=== PATIENT | female | born 1955 | race Caucasian/White ===

== ENCOUNTER 2020-02-01 11:22 | Emergency (ER) | payer MEDICARE, MEDICAID ==
[~2020-02-01] VITALS: Ht 162.6 cm; Wt 95.9 kg
[2020-02-01 11:31] VITALS: BP 117/72
--- NOTE | 2020-02-01 12:17 | NUR ---
Lani, PICC RN at bedside
--- NOTE | 2020-02-01 13:03 | NUR ---
Pt arrived for midline placement. Per MD order 5f dual lumen midline placed to left cephalic vein x's 1 attempt with success using ultrasound. Aftercare reviewed with pt and she denies any unanswered questions, problems or complaints. Yohana CALZADA RN Addendum: 02/01/20 at 1309 by Mary Beth Randall RN MIDLINE ASPIRATES BLOOD AND FLUSHES EASILY. OK TO USE FOR BLOOD DRAWS, INFUSIONS AND CT SCANS
[2020-02-01] MEDS ORDERED: ipratropium/albuterol 3ml nebule NEB ONE (14:10)
== END 2020-02-01 14:29 | disposition home or self-care (01) ==
LOC: ER 11:22
DX: Z45.2 Encounter for adjustment and management of vascular access device (principal); R06.02 Shortness of breath; R50.9 Fever, unspecified; I10 Essential (primary) hypertension; K21.9 Gastro-esophageal reflux disease without esophagitis; E11.9 Type 2 diabetes mellitus without complications; G89.29 Other chronic pain; Z86.19 Personal history of other infectious and parasitic diseases; Z87.891 Personal history of nicotine dependence; Z88.0 Allergy status to penicillin; Z88.2 Allergy status to sulfonamides; Z88.1 Allergy status to other antibiotic agents
CPT/HCPCS: 36569; 76937; 94640; 94760; 99152; 99153; 99285

== ENCOUNTER 2020-03-05 15:29 | Inpatient (IN) | payer MEDICARE, MEDICAID ==
[~2020-03-05] VITALS: Ht 167.6 cm; Wt 100.0 kg
[2020-03-05] MEDS ORDERED: normal saline 1000ML IV soln IVB ONE (16:15)
--- NOTE | 2020-03-05 16:35 | NUR ---
Pt is verbalizing concern about how she will get back home to [place] upon discharge to home.
--- NOTE | 2020-03-05 16:40 | NUR ---
Pt's tele-neurology exam completed with Dr. Bucio and this nurse at the bedside.
[2020-03-05 16:43] LABS: BASOPHILS # (AUTO) 0.1 X10'3 (0-0.2); BASOPHILS % (AUTO) 1.2 % (0-1); EOSINOPHILS % (AUTO) 0.7 % (0-6); HEMATOCRIT 39.9 % (35.0-45.0); HEMOGLOBIN 12.9 g/dl (12.0-16.0); LYMPHOCYTES # (AUTO) 1.4 X10'3 (1.1-4.8); LYMPHOCYTES % (AUTO) 28.9 % (21-51); MEAN CORPUSCULAR HEMOGLOBIN 26.8 PG (27.0-31.0); MEAN CORPUSCULAR HGB CONC 32.4 g/dL (33.0-36.5); MEAN CORPUSCULAR VOLUME 82.7 FL (78-98); MEAN PLATELET VOLUME 7.7 FL (7.4-10.4); MONOCYTES # (AUTO) 0.3 X10'3 (0-0.9); MONOCYTES % (AUTO) 6.1 % (2-12); NEUTROPHILS % (AUTO) 63.1 % (42-75); PLATELET COUNT 187 X10'3 (140-440); RED BLOOD COUNT 4.82 X10'6 (4.20-5.60); RED CELL DISTRIBUTION WIDTH 16.5 % (11.5-14.5); WHITE BLOOD COUNT 4.7 X10'3 (4.5-11.0)
--- NOTE | 2020-03-05 16:57 | NUR ---
Pt's lab work was hemolyzed per lab report. ramiro Fernandez is in the room attempting to recollect the blood work.
[2020-03-05] MEDS ORDERED: HYDR12.55 PO (17:05)
[2020-03-05] MEDS ORDERED: BUPR1FIL25 SL (17:18)
[2020-03-05] MEDS ORDERED: NOVLG SQ (17:26)
[2020-03-05] MEDS ORDERED: METF-438 PO (17:26)
[2020-03-05] MEDS ORDERED: METO25TA6 PO (17:26)
[2020-03-05] MEDS ORDERED: LISI-604 PO (17:26)
[2020-03-05] MEDS ORDERED: OMEP-50 PO (17:26)
[2020-03-05] MEDS ORDERED: morphine 4 MG/ML inj SYRINge IV ONE ×2 (18:20→19:45)
--- NOTE | 2020-03-05 18:24 | NUR ---
Lab phoned and reports the recollect on the lab work is hemolyzed, provider aware. Will attempt to recollect upon return from MRI.
--- NOTE | 2020-03-05 18:31 | NUR ---
To MRI via w/c with assistance of block saw operator. Pt given pain medication prior to MRI.
[2020-03-05 20:41] LABS: ALANINE AMINOTRANSFERASE 15 U/L (12-78); ALBUMIN 3.7 G/DL (3.4-5.0); ALBUMIN/GLOBULIN RATIO 1.4 (1.1-1.5); ALKALINE PHOSPHATASE 73 IU/L (46-116); ANION GAP 11 (8-16); ASPARTATE AMINO TRANSFERASE 20 U/L (10-37); BILIRUBIN,TOTAL 0.4 MG/DL (0.1-1.0); BLOOD UREA NITROGEN 12 MG/DL (7-18); CALCIUM 8.9 MG/DL (8.5-10.1); CHLORIDE 106 MMOL/L (99-107); GLUCOSE 86 MG/DL (70-104); POTASSIUM 3.8 MMOL/L (3.5-5.1); SODIUM 144 MMOL/L (135-145); TOTAL CARBON DIOXIDE 26.8 MMOL/L (24-32); TOTAL PROTEIN 6.4 G/DL (6.4-8.2); eGFR 56 ML/MIN
[2020-03-05] MEDS ORDERED: magnesium hydroxide 30ml (MOM) UD suspension PO PRN (21:10)
[2020-03-05] MEDS ORDERED: magnesium 2GM in 50ml NS 50 ML IV PRN (21:10)
[2020-03-05] MEDS ORDERED: potassium Cl 20 mEq SR tablet PO PRN ×2 (21:10)
[2020-03-05] MEDS ORDERED: magnesium Cl slow-release 64mg tablet PO PRN (21:10)
[2020-03-05] MEDS ORDERED: ondansetron/PF 4mg/2ml inj IV PRN (21:10)
[2020-03-05] MEDS ORDERED: bisacodyl 10mg suppository rectal RC PRN (21:10)
[2020-03-05] MEDS ORDERED: mag hydrox/Alum hydrox/simeth 30ml oral suspension PO PRN (21:10)
[2020-03-05] MEDS ORDERED: magnesium 4gm in 100ml NS 100 ML IV PRN (21:10)
[2020-03-05] MEDS ORDERED: acetaminophen 325mg tablet PO PRN (21:10)
[2020-03-05] MEDS ORDERED: potassium CL 10mEq/100ml bag 100 ML IV PRN ×2 (21:10)
[2020-03-05] MEDS ORDERED: glucagon, human recombinant 1mg kit SUBCUT PRN (21:15)
[2020-03-05] MEDS ORDERED: dextrose 50%-water 50ml dispensing syringe IV PRN ×2 (21:15)
[2020-03-05] MEDS ORDERED: MESSAGE TO PHARMACY PO ONE (21:15)
[2020-03-05] MEDS ORDERED: dextrose ORAL solution 15 GM/59 ML bottle PO PRN ×2 (21:15)
[2020-03-05] MEDS ORDERED: insulin Lispro (HumaLOG) vial - multi-dose SQ SCH (21:15)
--- NOTE | 2020-03-05 21:45 | NUR ---
Received report from SALES RECEPTIONISTMARGE Pagan. Patient to follow shortly.
[2020-03-05 21:47] LABS: HEMOGLOBIN A1C 4.5 % (4.5-6.2)
--- NOTE | 2020-03-05 22:00 | NUR ---
Patient arrived to floor via gurney at around 2145. Patient A&Ox4, transferred over to bed and 2 RN skin completed. VS intiiated.
[2020-03-05 22:11] LABS: CLARITY,URINE CLEAR (Clear); COLOR,URINE YELLOW (Yellow); GLUCOSE, URINE NEGATIVE (Neg); KETONES,URINE NEGATIVE (Neg); LEUKOCYTE ESTERASE ,URINE NEGATIVE (Neg); NITRITES, URINE NEGATIVE (Neg); OCCULT BLOOD,URINE NEGATIVE (Neg); PROTEIN,URINE NEGATIVE (Neg); UROBILINOGEN,URINE 0.2 E.U/dL (0.2-1.0)
[2020-03-05 22:13] LABS: UA COLLECTION TYPE CLN CATCH MIDSTREAM
[2020-03-05 22:15] VITALS: BP 125/73
[2020-03-05] MEDS: HYDROcodone/acetaminophen 5mg/325mg tablet PO PRN (22:32)
[2020-03-06 06:10] LABS: EOSINOPHILS # (AUTO) 0.1 X10'3 (0-0.9); EOSINOPHILS % (AUTO) 2.4 % (0-6); HEMATOCRIT 36.1 % (35.0-45.0); HEMOGLOBIN 11.7 g/dl (12.0-16.0); LYMPHOCYTES # (AUTO) 1.1 X10'3 (1.1-4.8); LYMPHOCYTES % (AUTO) 34.2 % (21-51); MEAN CORPUSCULAR HEMOGLOBIN 26.9 PG (27.0-31.0); MEAN CORPUSCULAR HGB CONC 32.4 g/dL (33.0-36.5); MEAN PLATELET VOLUME 7.5 FL (7.4-10.4); MONOCYTES # (AUTO) 0.3 X10'3 (0-0.9); MONOCYTES % (AUTO) 8.1 % (2-12); NEUTROPHILS # (AUTO) 1.7 X10'3 (1.8-7.7); NEUTROPHILS % (AUTO) 54.3 % (42-75); PLATELET COUNT 161 X10'3 (140-440); RED BLOOD COUNT 4.35 X10'6 (4.20-5.60); RED CELL DISTRIBUTION WIDTH 16.1 % (11.5-14.5); WHITE BLOOD COUNT 3.2 X10'3 (4.5-11.0)
--- NOTE | 2020-03-06 06:15 | NUR ---
Patient in room ORTHO 4012. I have received report from Ramandeep Troy and had the opportunity to ask questions and assume patient care.
[2020-03-06 06:28] LABS: ALANINE AMINOTRANSFERASE 23 U/L (12-78); ALBUMIN 3.4 G/DL (3.4-5.0); ALBUMIN/GLOBULIN RATIO 1.3 (1.1-1.5); ALKALINE PHOSPHATASE 65 IU/L (46-116); ANION GAP 9 (8-16); ASPARTATE AMINO TRANSFERASE 20 U/L (10-37); BILIRUBIN,TOTAL 0.3 MG/DL (0.1-1.0); BLOOD UREA NITROGEN 12 MG/DL (7-18); BUN/CREATININE RATIO 12.1 (6.6-38.0); CALCIUM 8.3 MG/DL (8.5-10.1); CHLORIDE 108 MMOL/L (99-107); CREATININE 0.99 MG/DL (0.40-0.90); GLUCOSE 74 MG/DL (70-104); MAGNESIUM 1.8 MG/DL (1.5-2.4); PHOSPHORUS 4.1 MG/DL (2.3-4.5); POTASSIUM 3.5 MMOL/L (3.5-5.1); SODIUM 144 MMOL/L (135-145); TOTAL CARBON DIOXIDE 27.3 MMOL/L (24-32); TOTAL PROTEIN 6.1 G/DL (6.4-8.2); eGFR 57 ML/MIN
--- NOTE | 2020-03-06 06:30 | NUR ---
Problems reprioritized. Patient report given, questions answered & plan of care reviewed with Ileana BIRD.
[2020-03-06] MEDS: HYDROcodone/acetaminophen 5mg/325mg tablet PO PRN ×3 (06:37→20:06)
[2020-03-06 06:42] VITALS: BP 112/70
[2020-03-06] MEDS: K and/or MAG REPLACEMENT MC SCH ×2 (07:21→20:00)
[2020-03-06 08:19] VITALS: BP 120/76
[2020-03-06] MEDS: metoprolol tartrate 25mg tablet PO SCH ×2 (08:19→20:00)
[2020-03-06] MEDS: docusate sod 100mg capsule PO SCH ×2 (08:19→20:00)
[2020-03-06] MEDS: HYDROchlorothiazide 12.5mg capsule PO SCH (08:20)
[2020-03-06] MEDS: lisinopril 5mg tablet PO SCH (08:20)
[2020-03-06] MEDS: pantoprazole 40mg Tablet.DR PO SCH ×2 (08:20→20:02)
[2020-03-06] MEDS: enoxaparin 40mg/0.4ml syringe SQ SCH (08:21)
[2020-03-06] MEDS: hydrOXYzine 25 MG tablet PO PRN (08:28)
[2020-03-06 10:00] VITALS: BP 107/63
--- NOTE | 2020-03-06 12:19 | NUR ---
PAGER ID: [phone] MESSAGE: Boogie Ms. Hilton in [id number] has concerns regarding her Zoloft. Med was not addressed in the med rec. Thank you Ileana # [id number]
[2020-03-06] MEDS: sertraline 50mg tablet PO SCH (12:34)
--- NOTE | 2020-03-06 13:11 | NUR ---
DM Consult: Pt A1C less than 7 and not appropriate for DM ed at this time. Addendum: 03/06/20 at [address] Amended: Links added.
[2020-03-06 18:00] VITALS: BP 102/62
--- NOTE | 2020-03-06 18:28 | NUR ---
Problems reprioritized. Patient report given, questions answered & plan of care reviewed with Jeniffer.
--- NOTE | 2020-03-06 18:30 | NUR ---
[facility] in room ORTHO 4009. I have received report from Ileana-MARGE, and had the opportunity to ask questions and assume patient care.
--- NOTE | 2020-03-06 18:35 | NUR ---
Patient in room ORTHO 4012. I have received report from Ileana-MARGE, and had the opportunity to ask questions and assume patient care.
[2020-03-06] MEDS: gabapentin 300mg capsule PO SCH (20:02)
[2020-03-06] MEDS: methylPREDNISolone sod succ/PF 40mg inj. IV SCH (20:03)
[2020-03-06] MEDS ORDERED: insulin glargine (Lantus) pen - multi-dose SQ SCH (21:00)
[2020-03-06 22:00] VITALS: BP 128/83
--- NOTE | 2020-03-06 22:28 | NUR ---
Patient's metoprolol on hold due to low systolic blood pressure
[2020-03-07 05:00] VITALS: BP 145/89
[2020-03-07 06:00] VITALS: BP 145/89
[2020-03-07 06:13] LABS: BASOPHILS % (AUTO) 0.3 % (0-1); EOSINOPHILS % (AUTO) 0.1 % (0-6); HEMOGLOBIN 12.7 g/dl (12.0-16.0); LYMPHOCYTES # (AUTO) 0.8 X10'3 (1.1-4.8); LYMPHOCYTES % (AUTO) 24.8 % (21-51); MEAN CORPUSCULAR HEMOGLOBIN 26.9 PG (27.0-31.0); MEAN CORPUSCULAR HGB CONC 32.6 g/dL (33.0-36.5); MEAN CORPUSCULAR VOLUME 82.4 FL (78-98); MEAN PLATELET VOLUME 7.4 FL (7.4-10.4); MONOCYTES % (AUTO) 1.5 % (2-12); NEUTROPHILS # (AUTO) 2.3 X10'3 (1.8-7.7); NEUTROPHILS % (AUTO) 73.3 % (42-75); PLATELET COUNT 169 X10'3 (140-440); RED BLOOD COUNT 4.73 X10'6 (4.20-5.60); RED CELL DISTRIBUTION WIDTH 16.1 % (11.5-14.5); WHITE BLOOD COUNT 3.1 X10'3 (4.5-11.0)
[2020-03-07 06:16] LABS: ALANINE AMINOTRANSFERASE 14 U/L (12-78); ALBUMIN 3.5 G/DL (3.4-5.0); ALBUMIN/GLOBULIN RATIO 1.2 (1.1-1.5); ALKALINE PHOSPHATASE 72 IU/L (46-116); ANION GAP 10 (8-16); ASPARTATE AMINO TRANSFERASE 20 U/L (10-37); BILIRUBIN,TOTAL 0.3 MG/DL (0.1-1.0); BLOOD UREA NITROGEN 15 MG/DL (7-18); BUN/CREATININE RATIO 14.7 (6.6-38.0); CALCIUM 8.9 MG/DL (8.5-10.1); CHLORIDE 103 MMOL/L (99-107); CREATININE 1.02 MG/DL (0.40-0.90); GLUCOSE 137 MG/DL (70-104); MAGNESIUM 1.6 MG/DL (1.5-2.4); PHOSPHORUS 3.5 MG/DL (2.3-4.5); SODIUM 140 MMOL/L (135-145); TOTAL CARBON DIOXIDE 27.2 MMOL/L (24-32); TOTAL PROTEIN 6.5 G/DL (6.4-8.2); eGFR 55 ML/MIN
--- NOTE | 2020-03-07 06:23 | NUR ---
Problems reprioritized. Patient report given to Aria, questions answered & plan of care reviewed with .
[2020-03-07] MEDS: hydrOXYzine 25 MG tablet PO PRN (06:35)
[2020-03-07] MEDS: HYDROcodone/acetaminophen 5mg/325mg tablet PO PRN ×2 (06:35→10:35)
--- NOTE | 2020-03-07 06:43 | NUR ---
Patient in room ORTHO 4012. I have received report from Jeniffer and had the opportunity to ask questions and assume patient care.
[2020-03-07] MEDS: K and/or MAG REPLACEMENT MC SCH (07:15)
[2020-03-07] MEDS: lisinopril 5mg tablet PO SCH (07:48)
[2020-03-07] MEDS: gabapentin 300mg capsule PO SCH (07:48)
[2020-03-07] MEDS: docusate sod 100mg capsule PO SCH (07:48)
[2020-03-07] MEDS: pantoprazole 40mg Tablet.DR PO SCH (07:48)
[2020-03-07] MEDS: sertraline 50mg tablet PO SCH (07:48)
[2020-03-07] MEDS: methylPREDNISolone sod succ/PF 40mg inj. IV SCH (07:49)
[2020-03-07] MEDS: metoprolol tartrate 25mg tablet PO SCH (07:49)
[2020-03-07] MEDS: HYDROchlorothiazide 12.5mg capsule PO SCH (07:49)
[2020-03-07] MEDS: enoxaparin 40mg/0.4ml syringe SQ SCH (07:50)
[2020-03-07 10:00] VITALS: BP 123/73
--- NOTE | 2020-03-07 11:30 | NUR ---
called and gave report to juana BIRD at [facility].
== END 2020-03-07 13:00 | DRG 552 ==
LOC: ER 15:30 → ED HOLD 21:06 → ORTHO 4S 21:45
PROVIDERS: ADMIT Family Medicine; ATTEND Internal Medicine
DX: M51.16 Intervertebral disc disorders with radiculopathy, lumbar region (principal); E11.65 Type 2 diabetes mellitus with hyperglycemia; F17.210 Nicotine dependence, cigarettes, uncomplicated; G89.29 Other chronic pain; I10 Essential (primary) hypertension; K21.9 Gastro-esophageal reflux disease without esophagitis; M51.37 Other intervertebral disc degeneration, lumbosacral region; M48.061 Spinal stenosis, lumbar region without neurogenic claudication; E66.01 Morbid (severe) obesity due to excess calories; E78.5 Hyperlipidemia, unspecified; R27.0 Ataxia, unspecified; R60.9 Edema, unspecified; W18.39XA Other fall on same level, initial encounter; Y93.89 Activity, other specified; Z68.35 Body mass index [BMI] 35.0-35.9, adult; Y92.89 Other specified places as the place of occurrence of the external cause; Y99.8 Other external cause status; Z82.49 Family history of ischemic heart disease and other diseases of the circulatory system; Z85.71 Personal history of Hodgkin lymphoma; Z85.72 Personal history of non-Hodgkin lymphomas; Z86.718 Personal history of other venous thrombosis and embolism
CPT/HCPCS: 36415; 72148; 80053; 81003; 82948; 83036; 83735; 84100; 85025; 85651; 87081; 93971; 97110; 97116; 97161; 97530; 99285; G0378; J1650; J1815; J2270; J2920; J7030; Z7610

== ENCOUNTER 2024-02-10 20:25 | Inpatient (IN) | payer MEDICARE, MEDICAID ==
[~2024-02-10] VITALS: Ht 167.6 cm; Wt 104.2 kg
[~2024-02-10 20:25] MED LIST: BUPR1FIL56 SL; HYDR12.55 PO; LISI5TAB22 PO; LOP25T PO; METF-438 PO; NOVLG SQ; OMEP20CA16 PO
[2024-02-10] MEDS ORDERED: magnesium hydroxide 30ml (MOM) UD suspension PO PRN (23:35)
[2024-02-10] MEDS ORDERED: potassium Cl 20 mEq SR tablet PO PRN (23:35)
[2024-02-10] MEDS ORDERED: magnesium Cl slow-release 64mg tablet PO PRN (23:35)
[2024-02-10] MEDS ORDERED: mag hydrox/Alum hydrox/simeth 30ml oral suspension PO PRN (23:35)
[2024-02-10] MEDS ORDERED: potassium Cl 40MEQ/1/2NS 520ml 520 ML IV PRN (23:35)
[2024-02-10] MEDS ORDERED: magnesium 4gm in 100ml NS 100 ML IV PRN (23:35)
[2024-02-10] MEDS: furosemide 40mg/4ml inj IV SCH (23:50)
[2024-02-10] MEDS ORDERED: glucagon, human recombinant 1mg kit SUBCUT PRN (23:55)
[2024-02-10] MEDS ORDERED: DEXTROSE 15 GM of carb/4 tabs (each vial/BOTTLE has 4 tablets) PO PRN ×2 (23:55)
[2024-02-10] MEDS ORDERED: insulin Lispro (HumaLOG) vial - multi-dose SQ SCH (23:55)
[2024-02-10] MEDS ORDERED: dextrose 50%-water 50ml dispensing syringe IV PRN ×2 (23:55)
[2024-02-11] VITALS (29 sets, daily range): BP systolic 111–140; BP diastolic 61–83; PULSE 82–107; RESP 13–26; TEMP 97.2–98.6; O2SAT 90–100
[2024-02-11] MEDS ORDERED: aminophylline 250mg/10ml inj. IV PRN
[2024-02-11] MEDS ORDERED: metoprolol tartrate 1mg/ml inj IV PRN
[2024-02-11] MEDS ORDERED: nitroGLYCERIN 0.4mg SUBLingual tab SL PRN
[2024-02-11] MEDS: MESSAGE TO PHARMACY PO ONE (00:42)
[2024-02-11] MEDS: nitroGLYCERIN 0.2mg/hour patch TD ONE (00:43)
[2024-02-11] MEDS: aspirin 81mg tab.chew PO ONE (00:52)
[2024-02-11] MEDS: metoprolol tartrate 50mg tablet PO ONE (00:54)
[2024-02-11] MEDS: heparin, porcine 5000 units/ml vial SQ SCH (00:54)
[2024-02-11] MEDS: atorvastatin 20mg tablet PO SCH (00:56)
[2024-02-11] MEDS: ondansetron/PF 4mg/2ml inj IV PRN (02:02)
[2024-02-11] MEDS: traMADol 50MG tablet PO ONE (02:02)
[2024-02-11] MEDS: ipratropium/albuterol 3ml nebule NEB SCH (03:26)
[2024-02-11] MEDS ORDERED: HYDR-3686 PO (05:15)
[2024-02-11 07:26] LABS: BASOPHILS % (AUTO) 0.5 % (0-1); EOSINOPHILS # (AUTO) 0.1 X10'3 (0-0.9); EOSINOPHILS % (AUTO) 0.7 % (0-6); HEMATOCRIT 35.1 % (35.0-45.0); HEMOGLOBIN 11.4 g/dl (12.0-16.0); LYMPHOCYTES % (AUTO) 14.2 % (21-51); MEAN CORPUSCULAR HEMOGLOBIN 27.3 PG (27.0-31.0); MEAN CORPUSCULAR HGB CONC 32.4 g/dL (33.0-36.5); MEAN CORPUSCULAR VOLUME 84.2 FL (78-98); MEAN PLATELET VOLUME 7.2 FL (7.4-10.4); MONOCYTES # (AUTO) 0.4 X10'3 (0-0.9); MONOCYTES % (AUTO) 5.4 % (2-12); NEUTROPHILS # (AUTO) 5.5 X10'3 (1.8-7.7); NEUTROPHILS % (AUTO) 79.2 % (42-75); PLATELET COUNT 247 X10'3 (140-440); RED BLOOD COUNT 4.17 X10'6 (4.20-5.60); RED CELL DISTRIBUTION WIDTH 18.3 % (11.5-14.5)
[2024-02-11] MEDS: pantoprazole 40mg Tablet.DR PO SCH (07:30)
[2024-02-11 07:48] LABS: ALBUMIN 3.4 G/DL (3.4-5.0); ANION GAP 13 (8-16); BLOOD UREA NITROGEN 20 MG/DL (7-18); BUN/CREATININE RATIO 14.6 (10.0-20.0); CALCIUM 8.6 MG/DL (8.5-10.1); CHLORIDE 107 MMOL/L (99-107); CHOL/HDL RATIO 3.3 (0.00-4.99); CHOLESTEROL 147 MG/DL (0-200); CREATININE 1.37 MG/DL (0.40-0.90); HDL CHOLESTEROL 45 MG/DL (35-60); LDL CHOLESTEROL 83 MG/DL (50-100); POTASSIUM 3.8 MMOL/L (3.5-5.1); SODIUM 147 MMOL/L (135-145); TOTAL CARBON DIOXIDE 27.2 MMOL/L (24-32); TRIGLYCERIDES 135 MG/DL (20-135); eCRCL 37 ML/MIN; eGFR 38 ML/MIN
[2024-02-11 07:50] LABS: GLUCOSE 115 MG/DL (70-104)
[2024-02-11] MEDS: lisinopril 2.5mg tablet PO SCH (08:00)
[2024-02-11] MEDS: metoprolol tartrate 25mg tablet PO SCH (08:00)
[2024-02-11] MEDS: docusate sod 100mg capsule PO SCH (08:00)
[2024-02-11] MEDS: budesonide 0.5mg/2ml UD nebule IH SCH (08:27)
[2024-02-11] MEDS: aspirin 81mg tab.chew PO SCH (08:31)
[2024-02-11] MEDS: hydroxychloroquine 200mg tablet PO SCH (12:30)
[2024-02-11] MEDS: regadenoson 0.4mg/5ml syringe IV PRN (13:23)
[2024-02-11] MEDS: hydrOXYzine 25 MG tablet PO PRN (15:28)
[2024-02-11] MEDS: traMADol 50MG tablet PO PRN (16:31)
[2024-02-11] MEDS: azithromycin/NS 500mg/250ml 250 ML IV SCH (16:32)
[2024-02-11] MEDS: nystatin 15 GM powder TP SCH (16:34)
[2024-02-11] MEDS: CefTRIAXone/D5W-Rocephin 1gm 50 ML IV SCH (16:56)
[2024-02-11] MEDS: insulin glargine (Lantus) pen - multi-dose SQ SCH (21:00)
[2024-02-12] VITALS (16 sets, daily range): BP systolic 95–120; BP diastolic 56–77; PULSE 81–103; RESP 16–19; TEMP 96.7–98.7; O2SAT 95–100
[2024-02-12] MEDS: acetaminophen 325mg tablet PO PRN (04:01)
[2024-02-12 06:42] LABS: ALANINE AMINOTRANSFERASE 16 U/L (12-78); ALBUMIN 3.3 G/DL (3.4-5.0); ALBUMIN/GLOBULIN RATIO 0.9 (1.1-1.5); ALKALINE PHOSPHATASE 75 IU/L (46-116); ANION GAP 10 (8-16); ASPARTATE AMINO TRANSFERASE 14 U/L (10-37); BILIRUBIN,TOTAL 0.5 MG/DL (0.1-1.0); BLOOD UREA NITROGEN 30 MG/DL (7-18); BUN/CREATININE RATIO 18.2 (10.0-20.0); CALCIUM 8.5 MG/DL (8.5-10.1); CHLORIDE 103 MMOL/L (99-107); CREATININE 1.65 MG/DL (0.40-0.90); POTASSIUM 3.2 MMOL/L (3.5-5.1); SODIUM 144 MMOL/L (135-145); TOTAL CARBON DIOXIDE 31.2 MMOL/L (24-32); eCRCL 31 ML/MIN; eGFR 31 ML/MIN
[2024-02-12 06:48] LABS: BASOPHILS % (AUTO) 0.7 % (0-1); EOSINOPHILS # (AUTO) 0.1 X10'3 (0-0.9); EOSINOPHILS % (AUTO) 1.9 % (0-6); HEMATOCRIT 33.3 % (35.0-45.0); HEMOGLOBIN 10.8 g/dl (12.0-16.0); LYMPHOCYTES # (AUTO) 1.1 X10'3 (1.1-4.8); LYMPHOCYTES % (AUTO) 19.8 % (21-51); MEAN CORPUSCULAR HEMOGLOBIN 27.6 PG (27.0-31.0); MEAN CORPUSCULAR HGB CONC 32.6 g/dL (33.0-36.5); MEAN CORPUSCULAR VOLUME 84.7 FL (78-98); MEAN PLATELET VOLUME 7.2 FL (7.4-10.4); MONOCYTES # (AUTO) 0.4 X10'3 (0-0.9); MONOCYTES % (AUTO) 7.2 % (2-12); NEUTROPHILS % (AUTO) 70.4 % (42-75); PLATELET COUNT 225 X10'3 (140-440); RED BLOOD COUNT 3.93 X10'6 (4.20-5.60); RED CELL DISTRIBUTION WIDTH 17.5 % (11.5-14.5); WHITE BLOOD COUNT 5.7 X10'3 (4.5-11.0)
[2024-02-12 06:51] LABS: PRO BRAIN NATRIURETIC PEPTIDE 2849 PG/ML (0-125)
[2024-02-12 06:57] LABS: GLUCOSE 110 MG/DL (70-104)
[2024-02-12 07:07] LABS: APTT 27 SECONDS (22-32); PROTHROMBIN TIME 11.1 SECONDS (9.0-12.0)
[2024-02-12] MEDS: apixaban 5mg tablet PO SCH (14:05)
[2024-02-12] MEDS ORDERED: DULO60CA65 PO (15:07)
[2024-02-12] MEDS: potassium Cl 20 mEq SR tablet PO PRN (15:18)
[2024-02-12] MEDS: furosemide 40mg/4ml inj IV SCH (15:22)
[2024-02-12 15:26] LABS: HBSAG SCREEN Negative (Negative); HEP B CORE AB, IGM Negative (Negative); HEP B CORE AB, TOT Negative (Negative)
[2024-02-12 20:52] LABS: ABG BASE EXCESS 3.6 mmol/L (-2.0-2.0); ABG HCO3 27.9 mmol/L (22.0-26.0); ABG OXYGEN SATURATION 97.7 % (94-97); ABG PO2 (T) 99.9 mmHg (75.0-100.0); FCOHb 1.3 % (0.0-3.9); FHHb 2.3 % (0.0-5.0); FLOW 2 L/min; FMetHb 0.3 % (0.0-1.5); FO2Hb 96.1 % (94-97); MODE NASAL CANNULA; TOTAL HEMOGLOBIN 11.9 G/dl (12.0-16.0)
[2024-02-13] VITALS (16 sets, daily range): BP systolic 95–137; BP diastolic 53–91; PULSE 74–128; RESP 14–22; TEMP 97.1–99; O2SAT 95–99
[2024-02-13] MEDS: duloxetine 30mg CAPSULE.DR PO SCH (17:36)
[2024-02-13] MEDS: diltiazem 5mg/ml 5ml inj. IV ONE (19:37)
[2024-02-13] MEDS: metoprolol tartrate 25mg tablet PO SCH (21:54)
[2024-02-14] VITALS (8 sets, daily range): BP systolic 95–114; BP diastolic 59–72; PULSE 92–95; RESP 14–20; TEMP 97.4–98.2; O2SAT 95–100
[2024-02-14 07:11] LABS: BASOPHILS % (AUTO) 0.6 % (0-1); EOSINOPHILS # (AUTO) 0.1 X10'3 (0-0.9); EOSINOPHILS % (AUTO) 2.1 % (0-6); HEMATOCRIT 35.9 % (35.0-45.0); HEMOGLOBIN 11.8 g/dl (12.0-16.0); LYMPHOCYTES # (AUTO) 0.9 X10'3 (1.1-4.8); LYMPHOCYTES % (AUTO) 16.3 % (21-51); MEAN CORPUSCULAR HEMOGLOBIN 27.6 PG (27.0-31.0); MEAN CORPUSCULAR HGB CONC 32.7 g/dL (33.0-36.5); MEAN CORPUSCULAR VOLUME 84.4 FL (78-98); MEAN PLATELET VOLUME 7.1 FL (7.4-10.4); MONOCYTES # (AUTO) 0.5 X10'3 (0-0.9); MONOCYTES % (AUTO) 7.9 % (2-12); NEUTROPHILS # (AUTO) 4.2 X10'3 (1.8-7.7); NEUTROPHILS % (AUTO) 73.1 % (42-75); PLATELET COUNT 231 X10'3 (140-440); RED BLOOD COUNT 4.26 X10'6 (4.20-5.60); RED CELL DISTRIBUTION WIDTH 18.3 % (11.5-14.5); WHITE BLOOD COUNT 5.8 X10'3 (4.5-11.0)
[2024-02-14 07:20] LABS: ALANINE AMINOTRANSFERASE 13 U/L (12-78); ALBUMIN 3.3 G/DL (3.4-5.0); ALBUMIN/GLOBULIN RATIO 0.9 (1.1-1.5); ALKALINE PHOSPHATASE 69 IU/L (46-116); ANION GAP 10 (8-16); ASPARTATE AMINO TRANSFERASE 13 U/L (10-37); BILIRUBIN,TOTAL 0.5 MG/DL (0.1-1.0); BLOOD UREA NITROGEN 29 MG/DL (7-18); BUN/CREATININE RATIO 19.9 (10.0-20.0); CALCIUM 8.8 MG/DL (8.5-10.1); CHLORIDE 103 MMOL/L (99-107); CREATININE 1.46 MG/DL (0.40-0.90); POTASSIUM 3.8 MMOL/L (3.5-5.1); SODIUM 144 MMOL/L (135-145); TOTAL CARBON DIOXIDE 30.9 MMOL/L (24-32); TOTAL PROTEIN 7.1 G/DL (6.4-8.2); eCRCL 35 ML/MIN; eGFR 36 ML/MIN
[2024-02-14 07:43] LABS: GLUCOSE 121 MG/DL (70-104)
[2024-02-14] MEDS: azithromycin 250mg tablet PO SCH (08:55)
[2024-02-14] MEDS ORDERED: LOP25T PO (10:21)
[2024-02-14] MEDS ORDERED: HYDR-3686 PO (10:21)
[2024-02-14] MEDS ORDERED: LEVO750T68 PO (10:21)
[2024-02-14] MEDS ORDERED: ASPI81TA53 PO (10:21)
[2024-02-14] MEDS ORDERED: ATOR20TA66 PO (10:21)
[2024-02-14] MEDS ORDERED: ALBU8HFA PO (10:21)
[2024-02-14] MEDS ORDERED: FURO40TA4 PO (10:21)
[2024-02-14] MEDS ORDERED: APIX5TAB3 PO (10:21)
[2024-02-14] MEDS: hydrOXYzine 25 MG tablet PO ONE (13:59)
== END 2024-02-14 14:57 | disposition home or self-care (01) | DRG 177 ==
LOC: ER 20:26 → ED HOLD 23:39 → EDBEDREQ 02-11 02:06 → PCU 3S 02-11 03:05
PROVIDERS: ADMIT Surgery; ATTEND Internal Medicine
PROC: 4A02XM4 Measurement of Cardiac Total Activity, External Approach (ICD-10-PCS; principal; 2024-02-11)
PROC: 3E033HZ Introduction of Radioactive Substance into Peripheral Vein, Percutaneous Approach (ICD-10-PCS; 2024-02-11)
PROC: 06HM33Z Insertion of Infusion Device into Right Femoral Vein, Percutaneous Approach (ICD-10-PCS; 2024-02-11)
PROC: B54BZZA Ultrasonography of Right Lower Extremity Veins, Guidance (ICD-10-PCS; 2024-02-11)
DX: J15.1 Pneumonia due to Pseudomonas (principal); I50.33 Acute on chronic diastolic (congestive) heart failure; J96.21 Acute and chronic respiratory failure with hypoxia; N17.0 Acute kidney failure with tubular necrosis; J44.1 Chronic obstructive pulmonary disease with (acute) exacerbation; I16.1 Hypertensive emergency; J44.0 Chronic obstructive pulmonary disease with (acute) lower respiratory infection; I11.0 Hypertensive heart disease with heart failure; K21.9 Gastro-esophageal reflux disease without esophagitis; F41.9 Anxiety disorder, unspecified; F32.A Depression, unspecified; G89.29 Other chronic pain; E11.9 Type 2 diabetes mellitus without complications; E66.01 Morbid (severe) obesity due to excess calories; F03.90 Unspecified dementia, unspecified severity, without behavioral disturbance, psychotic disturbance, mood disturbance, and anxiety; G47.33 Obstructive sleep apnea (adult) (pediatric); B37.2 Candidiasis of skin and nail; I25.119 Atherosclerotic heart disease of native coronary artery with unspecified angina pectoris; I25.5 Ischemic cardiomyopathy; I48.0 Paroxysmal atrial fibrillation; I34.0 Nonrheumatic mitral (valve) insufficiency; Z82.49 Family history of ischemic heart disease and other diseases of the circulatory system; Z80.52 Family history of malignant neoplasm of bladder; Z82.3 Family history of stroke; Z86.19 Personal history of other infectious and parasitic diseases; Z87.01 Personal history of pneumonia (recurrent); Z85.72 Personal history of non-Hodgkin lymphomas; Z79.4 Long term (current) use of insulin; Z79.899 Other long term (current) drug therapy; Z95.5 Presence of coronary angioplasty implant and graft; Z68.37 Body mass index [BMI] 37.0-37.9, adult; Z87.440 Personal history of urinary (tract) infections; Z88.0 Allergy status to penicillin; Z88.2 Allergy status to sulfonamides; Z88.5 Allergy status to narcotic agent; Z88.8 Allergy status to other drugs, medicaments and biological substances; Z88.1 Allergy status to other antibiotic agents; Z87.891 Personal history of nicotine dependence; Z90.49 Acquired absence of other specified parts of digestive tract; Z90.710 Acquired absence of both cervix and uterus; I25.2 Old myocardial infarction
CPT/HCPCS: 36415; 36600; 71045; 78452; 80048; 80053; 80061; 82803; 82948; 83036; 83880; 84484; 85018; 85025; 85610; 85730; 86704; 86705; 87081; 87340; 93005; 93017; 93306; 94010; 94640; 94760; 97161; 97530; 99285; A4333; A4615; A9500; G0378; J0456; J0696; J1644; J1940; J2405; J2785; J3490; Q0177